=== PATIENT | female | born 1970 | race Asian ===

== ENCOUNTER 2016-08-28 17:10 | Outpatient (CLI) | payer BC | END 2016-08-28 20:00 | disposition home or self-care (01) | LOC: RAD 17:10 | DX: J20.9 Acute bronchitis, unspecified (principal) ==

== ENCOUNTER 2016-12-13 16:47 | Inpatient (IN) | payer BC ==
[~2016-12-13] VITALS: Ht 167.6 cm; Wt 89.2 kg
[2016-12-13 16:45] VITALS: BP 124/81
[2016-12-13 16:53] VITALS: BP 121/79; TEMP 98
[2016-12-13 17:00] VITALS: BP 115/85
[2016-12-13 17:07] VITALS: BP 120/83
[2016-12-13 17:18] LABS: PLATELET COUNT 280 K/uL (152-353)
[2016-12-13 17:23] LABS: POTASSIUM 3.1 mmol/L (3.6-5.2); SODIUM 137 mmol/L (136-145)
[2016-12-13 18:09] VITALS: BP 114/80
[2016-12-13] MEDS ORDERED: RANITIDINE 150150 MG PO (18:42)
[2016-12-13] MEDS ORDERED: GLIP10TA55 PO (18:42)
[2016-12-13] MEDS ORDERED: LISI20TA31 OR (18:42)
[2016-12-13] MEDS ORDERED: METFORMIN HCL500 M1 PO (18:43)
[2016-12-13 20:00] VITALS: BP 119/79; TEMP 98.3
[2016-12-14] VITALS (7 sets, daily range): BP systolic 102–133; BP diastolic 73–86; TEMP 98.3–98.8; Ht 167.6 cm; Wt 89.2 kg
[2016-12-14 05:38] LABS: SODIUM 138 mmol/L (136-145)
--- NOTE | 2016-12-14 20:10 | NUR ---
12/14/161929 DR. ALEJANDRO NOTIFIED OF PATIENT RESULTS OF CPK TROPONIN NORMAL. MAY DISCHARGE HOME.CALL IN TO PHARMACY OF PATIENT CHOICE CARDIZEM 30MG PO TO TAKE BID.TOTAL COUNT 60 TABLETS.FOLLOW UP IN ONE WEEK.CC 12/14/161944 CALLED IN RX FOR CARDIZEM 30MG BID 60 COUNT TABLETS.CC 12/14/162004 DISCHARGE INSTRUCTIONS GIVEN TO PATIENT AND INFORMATION SIGNED. SALINE LOCK REMOVED TO LEFT AC APPLIED 2X2 SECURED WITH TAPE.PT TOLERATED WELL.CC 12/14/162014 PT DISCHARGED AMBULATED OUT WITH FAMILY.CC
== END 2016-12-14 20:15 | disposition home or self-care (01) | DRG 310 ==
LOC: ED 16:47 → MED/SURG 18:30
PROVIDERS: Family Medicine; ADMIT Specialist
DX: I47.9 Paroxysmal tachycardia, unspecified (principal); I10 Essential (primary) hypertension; E11.9 Type 2 diabetes mellitus without complications
CPT/HCPCS: 36415; 80048; 82550; 83735; 84100; 84443; 84484; 85027; 93005; 96361; 96365; 96366; 96374; 96376; 99284; J0150; J0153

== ENCOUNTER 2018-11-08 23:40 | Emergency (ER) | payer OTHER ==
[~2018-11-08] VITALS: Ht 167.6 cm; Wt 1003.4 kg
[~2018-11-08 23:40] MED LIST: ASPIRIN81 M1 PO; BLACK SEED OIL PO; CARTIA XT120 MG PO; GLIP10TA55 PO; HYDROCHLOROT12.5 M1 PO; LISI20TA11 PO; LISI20TA31 OR; METFORMIN HCL500 M1 PO; NEXIUM20 M1 PO; RANITIDINE 150150 MG PO
[2018-11-09 01:05] LABS: PLATELET COUNT 188 K/uL (152-353)
[2018-11-09 01:17] LABS: POTASSIUM 3.1 mmol/L (3.6-5.2); SODIUM 138 mmol/L (136-145)
[2018-11-09 01:52] VITALS: BP 138/90; TEMP 98.2
== END 2018-11-09 01:50 | disposition home or self-care (01) ==
LOC: ED 23:40
PROVIDERS: Family Medicine
DX: I10 Essential (primary) hypertension (principal); R51 Headache; R42 Dizziness and giddiness; R00.2 Palpitations
CPT/HCPCS: 80053; 82550; 82553; 84484; 85027; 93005; 99283

== ENCOUNTER 2019-01-29 08:57 | Outpatient (CLI) | payer OTHER ==
[2019-01-29 10:48] LABS: PLATELET COUNT 320 K/uL (152-353)
[2019-01-29 11:09] LABS: POTASSIUM 3.3 mmol/L (3.6-5.2)
== END 2019-01-29 20:12 | disposition home or self-care (01) ==
LOC: LABW 08:57
PROVIDERS: Family Medicine
DX: I10 Essential (primary) hypertension (principal); E78.2 Mixed hyperlipidemia; E53.8 Deficiency of other specified B group vitamins; R53.83 Other fatigue; E13.65 Other specified diabetes mellitus with hyperglycemia; E55.9 Vitamin D deficiency, unspecified
CPT/HCPCS: 80053; 80061; 81000; 82306; 82607; 83036; 84443; 85027